=== PATIENT | female | born 1995 | race Two or more races ===

== ENCOUNTER 2018-08-13 09:48 | Emergency (ER) | payer SELFPAY ==
[~2018-08-13] VITALS: Ht 160 cm; Wt 59.0 kg
[2018-08-13 10:47] VITALS: BP 127/85
[2018-08-13] MEDS ORDERED: TETANUS-DIPTH-ACEL PERTUSSIS 0.5ML SYRG IM ONE (11:30)
== END 2018-08-13 11:49 | disposition home or self-care (01) ==
LOC: ER 09:48
DX: S61.532A Puncture wound without foreign body of left wrist, initial encounter (principal); W54.0XXA Bitten by dog, initial encounter; Y93.89 Activity, other specified; Y99.8 Other external cause status; Y92.89 Other specified places as the place of occurrence of the external cause
CPT/HCPCS: 73130; 90471; 90715